=== PATIENT | female | born 1980 | race Hispanic/Latino ===

== ENCOUNTER 2024-08-18 13:01 | Outpatient (CLI) | payer OTHER ==
[2024-08-18] MEDS ORDERED: Magnevist 469MG/ML 20 ML VIAL ONE (13:45)
== END 2024-08-18 13:02 | disposition home or self-care (01) ==
LOC: CSHMRI 13:01
PROVIDERS: ATTEND Family Medicine
DX: D25.1 Intramural leiomyoma of uterus (principal); N85.8 Other specified noninflammatory disorders of uterus
CPT/HCPCS: 72197